=== PATIENT | female | born 1950 | race Caucasian/White ===

== ENCOUNTER → 2023-10-08 08:30 | Outpatient (REF) | payer MEDICARE, OTHER, SELFPAY | LOC: WDC 08:30 | PROVIDERS: ATTENDING PHYSICIAN Physician Assistant Medical | DX: Z12.31 Encounter for screening mammogram for malignant neoplasm of breast (principal) | CPT/HCPCS: 77063; 77067 ==

== ENCOUNTER → 2023-12-28 08:46 | Outpatient (REF) | payer MEDICARE, OTHER, SELFPAY | LOC: DHVS 08:46 | PROVIDERS: ATTENDING PHYSICIAN Surgery Vascular Surgery; FAMILY PHYSICIAN Physician Assistant Medical | DX: I73.9 Peripheral vascular disease, unspecified (principal) | CPT/HCPCS: 93922; 93925 ==

== ENCOUNTER → 2024-01-10 06:16 | Day surgery (SDC) | payer MEDICARE, OTHER, SELFPAY ==
[2024-01-10 08:38] LABS: Glucose - Point of Care 160 mg/dl (70-99)
== END ==
LOC: GI 06:16
PROVIDERS: ATTENDING PHYSICIAN Internal Medicine Gastroenterology
DX: K57.30 Diverticulosis of large intestine without perforation or abscess without bleeding (principal); R19.5 Other fecal abnormalities
CPT/HCPCS: 45378; 82962; 93005

== ENCOUNTER → 2024-03-19 11:06 | Outpatient (REF) | payer MEDICARE, OTHER, SELFPAY | LOC: DHSLP 11:06 | PROVIDERS: ATTENDING PHYSICIAN Internal Medicine; FAMILY PHYSICIAN Physician Assistant Medical | DX: G47.19 Other hypersomnia (principal); R06.83 Snoring | CPT/HCPCS: 95800 ==

== ENCOUNTER → 2024-04-23 15:05 | Outpatient (REF) | payer MEDICARE, OTHER, SELFPAY | LOC: DHSLP 15:05 | PROVIDERS: ATTENDING PHYSICIAN Internal Medicine; FAMILY PHYSICIAN Physician Assistant Medical | DX: G47.33 Obstructive sleep apnea (adult) (pediatric) (principal) | CPT/HCPCS: 95810 ==

== ENCOUNTER 2024-04-24 14:06 | Inpatient (IN) | payer MEDICARE, OTHER, SELFPAY ==
[2024-04-24] VITALS (8 sets, daily range): BP systolic 124–189; BP diastolic 50–100; BMI 24.8; BMI 24.1
--- NOTE | 2024-04-24 10:43 | ED.GENMED ---
History of Present Illness
General
Chief Complaint: Abnormal Lab Value
Source: patient
Exam Limitations: none
Time Seen by Provider: 04/24/24 10:33
Nursing documentation reviewed up to this point in time: agreed with
History of Present Illness
History of Present Illness:
Patient is a 73-year-old female with past medical history of hypertension diabetes high cholesterol presents to the ER for evaluation. Patient was sent to the ER today by her family doctor because of abnormal low platelets and recent blood work.
Patient reports for the past 3 weeks she has had blood blisters/sores in her mouth. She also has had bruising throughout her body and red rash to her legs and arms and saw her family doctor who ordered blood work. She has felt shaky and a little
tired recently. She is not on blood thinners.
She denies any nosebleeds. Denies any black or dark stools. Denies any vomiting blood.
Patient does report 2 weeks prior to the blood blister starting she was started on prednisone and Zanaflex for left shoulder pain.
Review of Systems
Review of Systems
Allergies reviewed?: Yes
All Other Systems: ROS reviewed and negative except as documented in HPI and ROS
Constitutional: Reports fatigue
EENT: Reports other (Blood blisters to mouth)
Respiratory: Reports no symptoms
Cardiac: Reports no symptoms
ABD/GI: Denies abdominal pain, nausea, vomiting, diarrhea or black stools
: Reports no symptoms; Denies bleeding
Musculoskeletal: Reports no symptoms
Skin: Reports no symptoms
Neurological: Reports no symptoms
Hematologic/Lymphatic: Reports bruising and other (Blood blisters in mouth)
Phy Exam
General Physical Exam
General Presentation: no apparent distress
General age: appears stated age
General Skin: warm and dry
General Habitus: normal
General Mental: alert
General Hydration: appears well hydrated
ENT Exam
ENT Exam: other (Blood blisters in mouth)
Eye Exam
Eye Exam General: PERRL: bilateral and EOM intact: bilateral
Pupil Exam: Bilateral: round and reactive
Cardiovascular Exam
Cardiovascular Exam: regular rate/rhythm, no murmur and normal peripheral pulses
Pulmonary Exam
Pulmonary Exam: lungs clear and no respiratory distress
Neurological Exam
Neurological Exam: alert and oriented x3
Musculoskeletal Exam
Musculoskeletal Exam: other (Scattered ecchymosis to extremities scattered red macular vasculitic rash to legs/arms )
Skin Exam
Skin Exam: normal color and warm/dry
Psychiatric Exam
Psychiatric Exam: normal mood/affect
Course
Orders/Labs/Results
Orders:
Orders
04/24/24 10:45
Type+Screen Urgent
Complete Blood Count/With Diff Urgent
Comprehensive Metabolic Panel Urgent
04/24/24 12:08
Electrocardiogram (*1) Stat
Reason for Study: Abdominal Pain
EKG- Treatment ONCE
Abnormal Lab Results
04/24/24
10:45
RBC 3.73 L 10^6/uL
(4.20-5.40)
MCV 100.0 H fL
(81.0-99.0)
MCH 33.2 H pg
(27.0-31.0)
Plt Count 2 L* 10^3/uL
(130-400)
Absolute Monos (auto) 0.7 H 10^3/uL
(0.1-0.6)
Chloride 109 H mmol/L
(98-107)
BUN 42 H mg/dl
(7-17)
Creatinine 1.4 H mg/dL
(0.6-1.0)
Glucose 176 H mg/dl
(70-99)
04/24/24 10:45
04/24/24 10:45
Vital Signs
Initial and Last Documented VS:
Initial Vital Signs
Temp Pulse Resp BP Pulse Ox
98.6 F 72 20 124/100 100
04/24/24 09:47 04/24/24 09:47 04/24/24 09:47 04/24/24 09:47 04/24/24 09:47
Last Documented Vital Signs
Temp Pulse Resp BP Pulse Ox
98.6 F 70 22 138/78 97
04/24/24 09:47 04/24/24 12:00 04/24/24 12:00 04/24/24 12:00 04/24/24 12:00
Radio Interference Expert consulted with Physician
Radio Interference Expert consulted with physician?: Yes
Name of Physician Consulted: Howie
MDM/Problems Addressed
Differential Diagnosis Includes:
Not limited to thrombocytopenia
MDM/Problems Addressed:
Patient is a 73-year-old female who was sent for low platelets. Patient started with blood blisters in her mouth several weeks ago no other complaints of bleeding including no nosebleeds no black stools no hematuria. She presents today awake alert
no acute distress sent by family doctor. She was recently started on prednisone and Zanaflex 2 weeks before the blood blister started in her mouth. Otherwise no other new medicines she is on multiple medicines for hypertension hyperlipidemia
diabetes.
On exam she does have scattered ecchymosis to extremities he does have a rash consistent vasculitis.
Patient denies any recent illnesses afebrile with a hemoglobin of 12.4 a white count of 8.0 platelets are low at 2. Patient's BUN is elevated at 42 creatinine 1.4 slightly (increased from previous labs of 2019).
Patient is in no acute distress well-appearing. Case discussed admitting hospitalist and oncology hematology Dr. Galvan who will look at smear first and then possibly order single donor platelets.
Patient into the hospital service not
*Pulse Oximetry
Patient hypoxic: no
*Critical Care Note
Total Time (30-74mins, 75-104mins- exclusive of procedures): Not Applicable
Patient Management
Discussion with other providers: Onion Farmer (hematology DR Galvan )
ED Attending Note
-
Portions of this chart may have been created with voice recognition software.� Occasional wrong word or��sound alike� substitutions may have occurred due to the inherent limitations of voice recognition software.
Discharge Plan
Departure
Patient Disposition: Admit
Date of Disposition: 04/24/24
Time of Disposition: 12:08
Admit to: Med/Surg
Admit to doctor: hospitalist
Presentation/result/management discussed w/ accepting MD/DO: Hospitalist
Patient with high blood pressure during this ER visit?: Yes
Condition: Fair
Covid-19: Not Applicable
Discharge Problem:
Thrombocytopenia
Prescriptions:
No Action
lovastatin 40 MG tablet
40 mg PO DAILY
glimepiride 4 MG tablet
4 mg PO BID
aspirin 81 MG tablet,chewable
1 tab PO DAILY
Patient Comments:
hold for surgery on 04/25/24
losartan 100 MG tablet
100 mg PO DAILY
multivitamin 1 EACH tablet
1 ea PO DAILY
ascorbic acid (vitamin C) [Vitamin C] 1,000 mg Tablet
1,000 mg PO DAILY Qty: 0
cholecalciferol (vitamin D3) [Vitamin D3] 50 mcg (2,000 unit) Tablet
50 mcg PO DAILY
metformin 1,000 MG tablet
1,000 mg PO BID
Jardiance 25 mg Tablet
25 mg PO DAILY
levothyroxine [Synthroid] 175 mcg Tablet
175 mcg PO MOTUWETHFRSA@0600
Interventions
Interventions:
*General Assessment Last Done: 04/24/24 09:47
*Neglect/Abuse Screening Last Done: 04/24/24 09:47
ED- Fall Risk Assessment Last Done: 04/24/24 11:05
*ED COVID-19 Vaccine History Last Done: 04/24/24 11:05
Discharge Date and Time
Print Language: SPANISH
[2024-04-24 11:09] LABS: ALT (SGPT) 15 U/L (0-35); AST (SGOT) 19 U/L (14-36); Albumin 3.7 g/dl (3.5-5.0); Alkaline Phosphatase 61 U/L (38-126); Blood Urea Nitrogen 42 mg/dl (7-17); Calcium 8.7 mg/dl (8.4-10.2); Carbon Dioxide 22 mmol/L (22-30); Chloride 109 mmol/L (98-107); Estimated Creatinine Clearance 38 ml/min; Glucose 176 mg/dl (70-99); Sodium 138 mmol/L (135-145); Total Bilirubin 0.4 mg/dl (0.2-1.3); Total Protein 6.3 g/dl (6.3-8.2); eGFR 39.97
[2024-04-24 11:37] LABS: % Basophils 0.6 % (0-2); % Eosinophils 0.9 % (0-6); % Immature Granulocytes 0.5 % (0-0.5); % Lymphocytes 21.9 % (20.5-51.1); % Monocytes 8.8 % (1.7-9.3); % Neutrophils 67.3 % (42.2-75.2); Absolute Basophils 0.1 10^3/uL (0-0.2); Absolute Eosinophils 0.1 10^3/uL (0-0.7); Absolute Lymphocytes 1.8 10^3/uL (1.2-3.4); Absolute Monocytes 0.7 10^3/uL (0.1-0.6); Absolute Neutrophils 5.4 10^3/uL (1.4-6.5); Hematocrit 37.3 % (37.0-47.0); Hemoglobin 12.4 g/dL (12.0-16.0); Mean Corp Hgb Conc. 33.2 g/dL (33.0-37.0); Mean Corpuscular Hgb 33.2 pg (27.0-31.0); Nucleated Red Blood Cells % 0 %; Platelet Count 2 10^3/uL (130-400); Red Blood Cell Count 3.73 10^6/uL (4.20-5.40); Red Cell Dist. Width 13.1 % (11.5-14.5)
--- NOTE | 2024-04-24 12:36 | ED.GENMED ---
History of Present Illness
General
Chief Complaint: Abnormal Lab Value
Source: patient
Exam Limitations: none
Time Seen by Provider: 04/24/24 10:33
Nursing documentation reviewed up to this point in time: agreed with
History of Present Illness
History of Present Illness:
Patient sent in for low platelet count with petechial rash and increased bruising.
Past History
Past History
ED Past Medical History: Other
ED Past Surgical History: Other
Social History
Alcohol: None
Drug: None
Personal:
Living: with family
Family History
Family History: Other
Review of Systems
Review of Systems
Allergies reviewed?: Yes
All Other Systems: Not applicable
Phy Exam
Physical Exam
Physical Exam:
Patient appears well, nontoxic, heart sounds regular lungs are clear. Petechial rash on extremities, chest and abdomen. Patient has extensive ecchymoses of lower extremities, especially left proximal thigh
Course
Orders/Labs/Results
Orders:
Orders
04/24/24 10:45
Type+Screen Urgent
Complete Blood Count/With Diff Urgent
Comprehensive Metabolic Panel Urgent
04/24/24 12:08
Electrocardiogram (*1) Stat
Reason for Study: Abdominal Pain
EKG- Treatment ONCE
Abnormal Lab Results
04/24/24
10:45
RBC 3.73 L 10^6/uL
(4.20-5.40)
MCV 100.0 H fL
(81.0-99.0)
MCH 33.2 H pg
(27.0-31.0)
Plt Count 2 L* 10^3/uL
(130-400)
Absolute Monos (auto) 0.7 H 10^3/uL
(0.1-0.6)
Chloride 109 H mmol/L
(98-107)
BUN 42 H mg/dl
(7-17)
Creatinine 1.4 H mg/dL
(0.6-1.0)
Glucose 176 H mg/dl
(70-99)
04/24/24 10:45
04/24/24 10:45
Vital Signs
Initial and Last Documented VS:
Initial Vital Signs
Temp Pulse Resp BP Pulse Ox
98.6 F 72 20 124/100 100
04/24/24 09:47 04/24/24 09:47 04/24/24 09:47 04/24/24 09:47 04/24/24 09:47
Last Documented Vital Signs
Temp Pulse Resp BP Pulse Ox
98.6 F 70 22 138/78 97
04/24/24 09:47 04/24/24 12:00 04/24/24 12:00 04/24/24 12:00 04/24/24 12:00
*Critical Care Note
Total Time (30-74mins, 75-104mins- exclusive of procedures): Not Applicable
Patient Management
Social determinants of health affecting care: Living situation and Strong social support
ED Attending Note
-
Portions of this chart may have been created with voice recognition software.� Occasional wrong word or��sound alike� substitutions may have occurred due to the inherent limitations of voice recognition software.
Discharge Plan
Departure
Patient Disposition: Admit
Date of Disposition: 04/24/24
Time of Disposition: 12:08
Admit to: Med/Surg
Admit to doctor: hospitalist
Presentation/result/management discussed w/ accepting MD/DO: Hospitalist
Patient with high blood pressure during this ER visit?: Yes
Condition: Fair
Covid-19: Not Applicable
Discharge Problem:
Thrombocytopenia
Prescriptions:
No Action
lovastatin 40 MG tablet
40 mg PO DAILY
glimepiride 4 MG tablet
4 mg PO BID
aspirin 81 MG tablet,chewable
1 tab PO DAILY
Patient Comments:
hold for surgery on 04/25/24
losartan 100 MG tablet
100 mg PO DAILY
multivitamin 1 EACH tablet
1 ea PO DAILY
ascorbic acid (vitamin C) [Vitamin C] 1,000 mg Tablet
1,000 mg PO DAILY Qty: 0
cholecalciferol (vitamin D3) [Vitamin D3] 50 mcg (2,000 unit) Tablet
50 mcg PO DAILY
metformin 1,000 MG tablet
1,000 mg PO BID
Jardiance 25 mg Tablet
25 mg PO DAILY
levothyroxine [Synthroid] 175 mcg Tablet
175 mcg PO MOTUWETHFRSA@0600
Interventions
Interventions:
*General Assessment Last Done: 04/24/24 09:47
*Neglect/Abuse Screening Last Done: 04/24/24 09:47
ED- Fall Risk Assessment Last Done: 04/24/24 11:05
*ED COVID-19 Vaccine History Last Done: 04/24/24 11:05
Discharge Date and Time
Print Language: PORTUGUESE
--- NOTE | 2024-04-24 13:02 | HPS.HSE ---
Addendum entered and electronically signed by Andria Ledbetter MD 04/24/24 14:33:
will resume low dose Glimepiride for now
Addendum entered and electronically signed by Andria Ledbetter MD 04/24/24 14:32:
per Dr. Galvan, Jardiance can have some anti-PLT effect so will hold for now
Addendum entered and electronically signed by Andria Ledbetter MD 04/24/24 13:43:
Hypothyroidism
-[employer] Synthroid
Original Note:
Family Physician
-
Family Physician: Marlys Patel
Chief Complaint
-
abnormal outpatient labs, low platelets
History of Present Illness
Ms. Bernarda Aquino is a 73 yo woman with hx NIDDM, essential HTN, CKD with outpatient work up for blood blisters in mouth with outpatient labs showing PLT count of 2 sent to the ER.
Patient states she first noticed bruising several weeks ago. She had blood blisters in her mouth that were the most bothersome, directed to get outpatient blood work and sent here with finding of low platelets. She has not had any black or bloody
stools. She stopped taking aspirin 2 weeks ago for upcoming eye procedure.
No fevers/chills. No chest pain or shortness of breath. No nausea/vomiting/diarrhea. No LE swelling.
Medical History
Past Medical History
Past Medical History: Reports Other ( NIDDM, essential HTN, CKD)
Past Surgical History: Reports Other
Social History
Tobacco: Smoker (1/2 pack/day)
Alcohol: None
Family History
Family History: Not pertinent
Allergies / Home Medications
Allergies reflects when Allergies were last updated in [facility].
Home Medications with original date entered in [facility]
Allergy/Medication List:
Allergies
Allergy/AdvReac Type Severity Reaction Status Date / Time
sulfanilamide Allergy Unknown Unknown Verified 08/13/19 07:23
lisinopril Allergy Unknown Verified 08/13/19 07:23
Home Medications
aspirin 81 mg chewable tablet 1 tab PO DAILY 04/07/19
glimepiride 4 mg tablet 4 mg PO BID 04/07/19
losartan 100 mg tablet 100 mg PO DAILY 04/07/19
lovastatin 40 mg tablet 40 mg PO DAILY 04/07/19
ascorbic acid (vitamin C) 1,000 mg tablet (Vitamin C) 1,000 mg PO DAILY ##0 08/13/19
multivitamin 1 ea PO DAILY 08/13/19
cholecalciferol (vitamin D3) 50 mcg (2,000 unit) tablet (Vitamin D3) 50 mcg PO DAILY 04/24/24
empagliflozin 25 mg tablet (Jardiance) 25 mg PO DAILY 04/24/24
levothyroxine 175 mcg tablet (Synthroid) 175 mcg PO MOTUWETHFRSA@0600 04/24/24
metformin 1,000 mg tablet 1,000 mg PO BID 04/24/24
Review of Systems
-
History Source: Patient
A 12 point ROS was completed and negative except as noted: Yes
Physical Exam
Vital Signs
Vital Signs
Temp Pulse Resp BP Pulse Ox
98.6 F 70 22 138/78 97
04/24/24 09:47 04/24/24 12:00 04/24/24 12:00 04/24/24 12:00 04/24/24 12:00
Physical Exam
General: No Apparent Distress and Conversant
HEENT: PERRLA
Respiratory: Clear; No Wheezes
Cardiac: S1/S2 and Regular Rhythm
GI: Soft and Non Tender
Musculoskeletal: No Edema
Skin: Other (scattered bruising and petechiae )
Neuro: AO x 3
Psych: Calm
Laboratory Results
-
04/24/24 10:45
04/24/24 10:45
Laboratory Results
Total Bilirubin 0.4 mg/dl (0.2-1.3) 04/24/24 10:45
AST 19 U/L (14-36) 04/24/24 10:45
ALT 15 U/L (0-35) 04/24/24 10:45
Alkaline Phosphatase 61 U/L (38-126) 04/24/24 10:45
Data Reviewed
-
Diagnostic Radiology: Report Reviewed by me
Lab Data: Labs Reviewed by me
Impression/Plan
-
Ms. Bernarda Aquino is a 73 yo woman with hx NIDDM, essential HTN, CKD with outpatient work up for blood blisters in mouth with outpatient labs showing PLT count of 2 sent to the ER.
Triage VS: T 98.6, P 72, RR 20, BP 124/100, SpO2 100%
LABS: WBC 8, Hg 12.4, PLT 2, Na 138, K+ 5, Cl 109, BUN 42, Cr 1.4, Glucose 176, liver enzymes WNL
Thrombocytopenia
Suspected ITP
-seen by Hematology in the ER
-transfuse 1 unit PLT (ordered, blood bank may not have PLT transfusion until this evening)
-Pulse Decadron 40mg IV QD
-hold [employer] aspirin (had been held for upcoming procedure)
NIDDM
-patient is on Jardiance, Glimepiride and Metformin at home
-continue Jardiance for now, add on other oral agents based on BGL
-ISS low
-diabetic diet
Essential HTN
-[employer] Losartan
Elevated creatinine, patient states she's been told she has chronic kidney disease
-requesting outpatient records
HLD [employer] Statin
DVT PPx - contraindicated
FULL CODE
76 minutes spent on patient care
--- NOTE | 2024-04-24 14:13 | CON.ONC ---
Impression
Impression
thrombocytopenia
petechial rash
ecchymosis
Plan
Plan
1. Thrombocytopenia - The etiology of this patient's thrombocytopenia is unclear. ITP is on the differential, given normal WBC and hemoglobin. Tizanidine, which the patient was taking a few weeks ago, has thrombocytopenia listed in the PI as a rare
side effect. Jardiance can have some anti-platelet effects; therefore, would hold in the setting of severe thrombocytopenia.
Reviewed patient's peripheral blood smear w/ no evidence of microangiopathic RBCs changes appreciated. Red blood cell morphology appeared fairly normal. Will proceed w/ initiation of steroids - w/ pulse dexamethasone 40mg daily and transfuse 1 unit
single donor plts. Check anti-platelet antibody panel as well as hepatitis panel.
Will continue to follow with you.
Patient History
History of Present Illness
73y/o female seen in consultation today regarding thrombocytopenia.
The patient has noted petechial rash on her LE bilaterally for about a week or two, along w/ some new sores/ blisters in mouth and ecchymosis along her left inner thigh. She presented to her PCP, who did some labs, which demonstrated low platelets.
CBC in ER reveals normal total WBC of 8000, hemoglobin 12.4g/dl, and platelet count 2000. Differential of total WBC revealed normal differential percentages.
She denies any prior history of thrombocytopenia. She does note a recent history of shoulder pain treated w/ prednisone and Zanaflex.
Clinically, she notes no fevers or chills. No SOB, chest pain, palpitations, abdominal pain/ fullness. No self-palpated adenopathy. She denies blood in her stool or urine. Bruising and petechial rash as reported above. No epistaxis. She has had some
oral mucocutaneous discomfort and sores.
Past-Medical/Surgical History
PMH:
DM
HTN
CKD
hyperlipidemia
hypothyroidism
tobacco use
PSH:
tendon sheath
wisdom teeth
hemorrhoid surgery
SH:
smoker
no significant ETOH
FH: mother cancer - denies a family history of thrombocytopenia
Allergies: lisinopril, sulfa
Patient Medication
�Medication �Instructions �Recorded �Confirmed �Last Taken �Type
aspirin 81 mg chewable tablet 1 tab PO DAILY 04/07/19 04/24/24 30 Days Ago History
~03/25/24
glimepiride 4 mg tablet 4 mg PO BID 04/07/19 04/24/24 04/24/24 History
losartan 100 mg tablet 100 mg PO DAILY 04/07/19 04/24/24 04/24/24 History
lovastatin 40 mg tablet 40 mg PO DAILY 04/07/19 04/24/24 04/24/24 History
ascorbic acid (vitamin C) 1,000 mg 1,000 mg PO DAILY ##0 08/13/19 04/24/24 08/12/19 08:00 History
tablet (Vitamin C)
multivitamin 1 ea PO DAILY 08/13/19 04/24/24 08/12/19 08:00 History
cholecalciferol (vitamin D3) 50 50 mcg PO DAILY 04/24/24 04/24/24 Unknown History
mcg (2,000 unit) tablet (Vitamin
D3)
empagliflozin 25 mg tablet 25 mg PO DAILY 04/24/24 04/24/24 04/24/24 History
(Jardiance)
levothyroxine 175 mcg tablet 175 mcg PO MOTUWETHFRSA@0600 04/24/24 04/24/24 04/23/24 History
(Synthroid)
metformin 1,000 mg tablet 1,000 mg PO BID 04/24/24 04/24/24 04/24/24 History
Active Medications
Generic Name Dose Route Start Last Admin
Trade Name Freq PRN Reason Stop Dose Admin
Dexamethasone Sodium Phosphate 60 mls @ 180 mls/hr 04/24/24 13:37
40 mg/ Sodium Chloride IV 04/24/24 13:56
ONCE ONE
Review of Systems
-
A ROS was performed w/ pertinent findings as per HPI.
Physical Exam
-
General: Well Developed and No Apparent Distress
HEENT: Negative Jaundice
Cardiology: Normal Sinus Rhythm
Pulmonary: Clear
GI: Soft and Normal Bowel Sounds; Negative Distended
Extremities: Negative Edema
Neurology: Non Focal
Skin: Other (petechial rash bilateral LE to knee, ecchymosis left inner thigh)
Hematologic / Lymphatic: Negative Lymphadenopathy
Labs
Lab Results
WBC 8.0 10^3/uL (4.8-10.8) 04/24/24 10:45
RBC 3.73 10^6/uL (4.20-5.40) L 04/24/24 10:45
Hgb 12.4 g/dL (12.0-16.0) 04/24/24 10:45
Hct 37.3 % (37.0-47.0) 04/24/24 10:45
MCV 100.0 fL (81.0-99.0) H 04/24/24 10:45
MCH 33.2 pg (27.0-31.0) H 04/24/24 10:45
MCHC 33.2 g/dL (33.0-37.0) 04/24/24 10:45
RDW 13.1 % (11.5-14.5) 04/24/24 10:45
Plt Count 2 10^3/uL (130-400) L* 04/24/24 10:45
MPV Not Reportable 04/24/24 10:45
Abs Immat Gran (auto) 0.0 10^3/uL (0-0.05) 04/24/24 10:45
Absolute Neuts (auto) 5.4 10^3/uL (1.4-6.5) 04/24/24 10:45
Absolute Lymphs (auto) 1.8 10^3/uL (1.2-3.4) 04/24/24 10:45
Absolute Monos (auto) 0.7 10^3/uL (0.1-0.6) H 04/24/24 10:45
Absolute Eos (auto) 0.1 10^3/uL (0-0.7) 04/24/24 10:45
Absolute Basos (auto) 0.1 10^3/uL (0-0.2) 04/24/24 10:45
Immature Gran % 0.5 % (0-0.5) 04/24/24 10:45
Neutrophils % 67.3 % (42.2-75.2) 04/24/24 10:45
Lymphocytes % 21.9 % (20.5-51.1) 04/24/24 10:45
Monocytes % 8.8 % (1.7-9.3) 04/24/24 10:45
Eosinophils % 0.9 % (0-6) 04/24/24 10:45
Basophils % 0.6 % (0-2) 04/24/24 10:45
Creatinine 1.4 mg/dL (0.6-1.0) H 04/24/24 10:45
Vital Signs
Vital Signs
Temp Pulse Resp BP Pulse Ox
98.6 F 70 22 138/78 97
04/24/24 09:47 04/24/24 12:00 04/24/24 12:00 04/24/24 12:00 04/24/24 12:00
--- NOTE | 2024-04-24 15:03 | ED.GENMED ---
History of Present Illness
General
Chief Complaint: Abnormal Lab Value
Time Seen by Provider: 04/24/24 10:33
Past History
Past History
ED Past Medical History: Other
ED Past Surgical History: Other
Social History
Alcohol: None
Drug: None
Personal:
Living: with family
Family History
Family History: Other
Course
Orders/Labs/Results
Orders:
Orders
04/24/24 10:45
Type+Screen Urgent
Complete Blood Count/With Diff Urgent
Comprehensive Metabolic Panel Urgent
04/24/24 12:08
Electrocardiogram (*1) Stat
Reason for Study: Abdominal Pain
EKG- Treatment ONCE
04/24/24 13:23
Admit/Transfer Patient As Directed
Co-Sign Provider:
Level of Care: Inpatient admission
Assign to:: Telemetry
Physician / Group: Andria Ledbetter
Diagnosis: thrombocytopenia
Reason for Telemetry: Chest Pain syndromes
Date to Stop Telemetry: 04/26/24
Time to Stop Telemetry: 11:00
Reason for Hospitalization: severe thrombocytopenia
Expected length of stay greater than two midnights?: Yes
ELOS- Estimated Length of Stay in days: 3
I certify the patient meets the requirements for IP care: Yes
PRN Pain Medication Management As Directed
May give lesser potent ordered pain med per pt: Yes
preference::
Protocol:: Medication orders for pain may be administered in a
manner that supports deferring to patient preference
when the pt is:
- Requesting an ordered lesser potent pain medication.
Least to most potent pain medications are defined
as: acetaminophen < NSAID < tramadol < opioids
(morphine, oxycodone, hydromorphone).
- Requesting a lesser dose of the same medication IF
ORDERED.
- Requesting a less intrusive route of administration
if both routes are prescribed by the provider (PO <
IV).
04/24/24 13:24
Code Status As Directed
Resuscitation Status: Full Code
04/24/24 13:27
Blood Bank Products [* Blood Bank Products] Urgent
Blood Bank Products: *Plt Single Donor Leuko
Quantity: 1
Transfuse Today: Yes
Reason: Thrombocytopenia
04/24/24 14:27
Dexamethasone Sod Phosphate [Decadron] 40 mg 0.9% Sodium Chloride 50 ml [Nss] 50 ml IV NOW
04/26/24 11:00
DC Protocol for Telemetry ONCE
Abnormal Lab Results
04/24/24
10:45
RBC 3.73 L 10^6/uL
(4.20-5.40)
MCV 100.0 H fL
(81.0-99.0)
MCH 33.2 H pg
(27.0-31.0)
Plt Count 2 L* 10^3/uL
(130-400)
Absolute Monos (auto) 0.7 H 10^3/uL
(0.1-0.6)
Chloride 109 H mmol/L
(98-107)
BUN 42 H mg/dl
(7-17)
Creatinine 1.4 H mg/dL
(0.6-1.0)
Glucose 176 H mg/dl
(70-99)
04/24/24 10:45
04/24/24 10:45
Vital Signs
Initial and Last Documented VS:
Initial Vital Signs
Temp Pulse Resp BP Pulse Ox
98.6 F 72 20 124/100 100
04/24/24 09:47 04/24/24 09:47 04/24/24 09:47 04/24/24 09:47 04/24/24 09:47
Last Documented Vital Signs
Temp Pulse Resp BP Pulse Ox
98.6 F 68 21 126/70 99
04/24/24 09:47 04/24/24 14:30 04/24/24 14:30 04/24/24 13:00 04/24/24 12:15
MDM/Problems Addressed
MDM/Problems Addressed:
73-year-old female presents to the ER for evaluation of low platelets. Patient started with blood blister several weeks ago an had outpatient and was sent to the ER for evaluation of low platelets. She has no history of abnormal platelets. On
exam she is nontoxic awake alert able to give good history. She does have blisters in her mouth with scattered ecchymosis petechiae. She denies any other areas of bleeding denies any nosebleeds rectal bleeding. She denies any chest pain shortness
of breath and vital signs are stable her white count is normal her hemoglobin is also normal at 12.4, her platelets are low at 2000 her BUN and creatinine are minimally elevated.
Case discussed with hematology Dr. Galvan who evaluated pt.
Pt was eval by hospitliast consent obtained by hospitalist for tx of platlets. NO pls in hospital at this time as per lab Possibly eval this evening. Hematology aware.
*Pulse Oximetry
Patient hypoxic: no
*EKG
Interpreted by ED Provider?: Yes
Heart Rate: 66
Rate: normal
ED Attending Note
-
Portions of this chart may have been created with voice recognition software.� Occasional wrong word or��sound alike� substitutions may have occurred due to the inherent limitations of voice recognition software.
Discharge Plan
Departure
Patient Disposition: Admit
Date of Disposition: 04/24/24
Time of Disposition: 12:08
Admit to: Med/Surg
Admit to doctor: hospitalist
Presentation/result/management discussed w/ accepting MD/DO: Hospitalist
Patient with high blood pressure during this ER visit?: Yes
Condition: Fair
Covid-19: Not Applicable
Discharge Problem:
Thrombocytopenia
Interventions
Interventions:
*General Assessment Last Done: 04/24/24 09:47
*Neglect/Abuse Screening Last Done: 04/24/24 09:47
ED- Fall Risk Assessment Last Done: 04/24/24 11:05
*ED COVID-19 Vaccine History Last Done: 04/24/24 11:05
[2024-04-24] MEDS: DECADRON 60 MG IV (15:07)
[2024-04-24] MEDS: NICODERM TRANSDERMAL 14 MG TRANSDERM (16:42)
[2024-04-24 19:28] LABS: Glucose - Point of Care 349 mg/dl (70-99)
[2024-04-24] MEDS: NOVOLOG FLEXPEN 5 UNITS SC (20:43)
[2024-04-25] VITALS (10 sets, daily range): BP systolic 105–166; BP diastolic 63–88; BMI 23.7
[2024-04-25 01:53] LABS: Glucose - Point of Care 278 mg/dl (70-99)
[2024-04-25 02:58] LABS: Glucose - Point of Care 224 mg/dl (70-99)
[2024-04-25] MEDS: SYNTHROID 175 MCG PO (04:59)
[2024-04-25 06:38] LABS: INR 0.96; PT 13.2 Sec (11.4-14.6)
[2024-04-25 06:54] LABS: Blood Urea Nitrogen 38 mg/dl (7-17); Calcium 9.1 mg/dl (8.4-10.2); Carbon Dioxide 18 mmol/L (22-30); Chloride 109 mmol/L (98-107); Estimated Creatinine Clearance 44 ml/min; Glucose 164 mg/dl (70-99); Magnesium 2.2 mg/dl (1.6-2.3); Potassium 4.7 mmol/L (3.5-5.1); Sodium 138 mmol/L (135-145); eGFR 48.09
[2024-04-25 07:34] LABS: % Basophils 0.1 % (0-2); % Immature Granulocytes 0.4 % (0-0.5); % Lymphocytes 9.8 % (20.5-51.1); % Monocytes 10.9 % (1.7-9.3); % Neutrophils 78.8 % (42.2-75.2); Absolute Lymphocytes 0.8 10^3/uL (1.2-3.4); Absolute Monocytes 0.9 10^3/uL (0.1-0.6); Absolute Neutrophils 6.6 10^3/uL (1.4-6.5); Hematocrit 36.5 % (37.0-47.0); Hemoglobin 12.3 g/dL (12.0-16.0); Mean Corp Hgb Conc. 33.7 g/dL (33.0-37.0); Mean Corpuscular Hgb 32.4 pg (27.0-31.0); Mean Corpuscular Volume 96.1 fL (81.0-99.0); Nucleated Red Blood Cells % 0 %; Red Cell Dist. Width 12.9 % (11.5-14.5); White Blood Cell Count 8.4 10^3/uL (4.8-10.8)
[2024-04-25 07:35] LABS: Platelet Count 2 10^3/uL (130-400)
[2024-04-25 07:53] LABS: Hepatitis C Antibody Negative (Negative)
[2024-04-25 08:39] LABS: Glucose - Point of Care 120 mg/dl (70-99)
[2024-04-25] MEDS: LIPITOR 10 MG PO (08:50)
[2024-04-25] MEDS: GLUCOPHAGE 1000 MG PO ×2 (08:51→17:48)
[2024-04-25] MEDS: NICODERM TRANSDERMAL 14 MG TRANSDERM (08:51)
[2024-04-25] MEDS: COZAAR 100 MG PO (08:52)
--- NOTE | 2024-04-25 11:05 | CM ---
Pt seen bedside w/ ex-. Initial assessment completed. Admitted for abnormal outpatient labs, low platelets.
Pt reports that she lives w/ her ex- in a single story home- 1 step to enter the home. Pt reports she is independent w/ ambulating and ADLs, there are grab bars in the home, no other DME identified.
Denies SNF/VN/PT hx. Pt denies any current OP or home services at this time.
Address, point of contact and insurance verified
PCP: Dr. Marlys Patel
Pharmacy: [facility]. [facility] also [facility]
Plan: CM will cont to follow hospital course
[2024-04-25 12:04] LABS: Glucose - Point of Care 140 mg/dl (70-99)
[2024-04-25] MEDS: GAMMAGARD 50 IV (12:06)
[2024-04-25] MEDS: NOVOLOG FLEXPEN-LOW RESISTANCE SC (12:25)
[2024-04-25 12:45] LABS: Glycohemoglobin (HgbA1c) 6.8 % (4.0-5.6)
[2024-04-25] MEDS: DECADRON 60 MG IV (13:07)
[2024-04-25] MEDS: GAMMAGARD 200 IV ×3 (13:08→15:21)
--- NOTE | 2024-04-25 14:11 | W.PN.ONC2 ---
Today's Communication / Plan
-
- IVIG x 2 days starting today.
- continue dexamethasone.
- CBC daily.
Impression
Impression
thrombocytopenia
petechial rash
ecchymosis
Plan
Plan
1. Thrombocytopenia - The etiology of this patient's thrombocytopenia is unclear. ITP is high on the differential, given normal WBC and hemoglobin. Tizanidine, which the patient was taking a few weeks ago, has thrombocytopenia listed in the PI as a
rare side effect. Jardiance can have some anti-platelet effects; therefore, would hold in the setting of severe thrombocytopenia.
- nml hgb, coags, T bili. no schistocytes on smear review by Dr Galvan.
- pulse dexamethasone 40mg daily x 4 started 04/24. Continue
- anti-platelet antibody panel as well as hepatitis panel ordered.
- received 1 unit plts 04/24 with no response. plts remain 2K today. Can hold off as limited response until other tx takes effect.
- ordered IVIG 1 mg/kg x 2 days for suspected ITP.
- CBC daily. transfuse if < 10K with new bleeding symptoms.
Will continue to follow with you and arrange hematology follow up with close lab monitoring on discharge.
Subjective/Objective
Chief Complaint
severe thrombocytopenia
Subjective
pt has no new complaints today. Temp of 101 recorded today however pt states she thinks error. Denies chills, malaise or other infectious symptoms. Denies new bruising or bleeding. Plts remain at 2,000 today despite 1 unit plts yesterday evening.
Vital Signs:
Vital Signs
Temp Pulse Resp BP Pulse Ox
97.7 F 78 23 138/86 99
04/25/24 11:15 04/25/24 11:15 04/25/24 11:15 04/25/24 11:15 04/25/24 11:15
Lab Results:
Laboratory Data
WBC 8.4 10^3/uL (4.8-10.8) 04/25/24 06:01
Hgb 12.3 g/dL (12.0-16.0) 04/25/24 06:01
Plt Count 2 10^3/uL (130-400) L* 04/25/24 06:01
PT 13.2 Sec (11.4-14.6) 04/25/24 06:01
INR 0.96 04/25/24 06:01
eGFR 48.09 04/25/24 06:01
Physical Exam
HEENT: Other (ecchymotic lesion along inner mucosa of mouth on right side. ); No Jaundice
Cardiology: Normal Sinus Rhythm
Pulmonary: Clear
GI: Soft; No Distended
Extremities: Other (large ecchymotic lesion on left inner thigh ); No Phlebitic Signs or Edema
Neuro: Non Focal
Review of Systems
Review of Systems
Constitutional: Denies Fever
Head: Denies Sore Throat
Respiratory: Denies Dyspnea
Cardiovascular: Denies Chest Pain
Gastrointestinal: Denies Nausea/Vomiting
Genitourinary: Denies Hematuria
Neurological: Denies Headache
Hem/Lymphatic: Reports Easy Bruising
--- NOTE | 2024-04-25 14:42 | W.PN.HOSP.TC ---
Addendum entered and electronically signed by Precious Rai MD 04/25/24 15:39:
I saw and evaluated the patient independently. I reviewed the resident�s note and agree with findings and plan as documented by Dr. Hudson.
GENERAL: well developed, well nourished, pale appearing female in no apparent distress
HEENT: NC/AT--small area on inner right buccal mucosa with 'aphthous ulcer appearance'--not purpura
HEART: regular rate and rhythm, +S1, +S2
LUNGS : clear to auscultation bilaterally
ABDOM: soft, nontender, nondistended, + bowel sounds
EXT: no cyanosis, clubbing, or edema--ecchymosis on inner thigh--petechiae across lower legs
NEUROLOGIC: grossly intact
Thrombocytopenia--suspect ITP--from RSV vaccine?, meds, immune mediated?--unclear cause--apprec heme--received 1 pack platelets, hold further transfusion per heme--getting pulse dose steroids and IVIG--Jardiance and tizanidine on hold
Type 2 Cjr-qthbgrx-narzgohfl diabetes mellitus--Holding Jardiance/metformin-- cont glimepiride- SSI. Monitor accuchecks with current high dose steroids
Essential hypertension--Continue losartan
Elevated creatinine--unclear if KEANU vs CKD--creat 1.4 to 1.2--trend
Hyperlipidemia--Continue statin
DVT prophy--SCDs
CODE STATUS-- Full code
Original Note:
Today's Communication/Plan
-
Steroids, IVIG, follow CBC
Assessment / Plan
Assessment / Plan
71-year-old female with history of hypertension, diabetes and hypercholesterolemia who presents with thrombocytopenia.
Thrombocytopenia
Platelets 2 on arrival, same after 1unit of platelets
Possible ITP, with recent history of RSV vaccine
-Holding Jardiance for possible thrombocytopenia side effect
-Appreciate hematology recs - Pulse dexamethasone dosing, IVIG. Hold repeat platelet transfusion given no response to previous
-Follow CBC
Knz-mfprooa-huqkyzvxj diabetes mellitus:
-Holding Jardiance thrombocytopenia, holding metformin for kidney
-Will continue Glimepiride
- SSI. Monitor accuchecks with current high dose steroids
Essential hypertension:
-Continue losartan
Elevated creatinine
Patient reports history of CKD, unclear staging and baseline creatinine
-Monitor BMP, avoid nephrotoxic agents
Hyperlipidemia
-Continue statin
DVT prophylaxis: SCDs
CODE STATUS: Full code
Anticipated Discharge: > 48 hours
Subjective/Interval History
-
Date of Service: April 25, 2024
Pt feels well, no acute overnight events
Objective Data
-
Labs:
Laboratory Results
04/25/24
06:01
WBC 8.4
Hgb 12.3
Hct 36.5 L
Plt Count 2 L*
PT 13.2
INR 0.96
Sodium 138
Potassium 4.7
Chloride 109 H
Carbon Dioxide 18 L
BUN 38 H
Creatinine 1.2 H
Glucose 164 H
Calcium 9.1
Vital Signs:
Vital Signs
Temp Pulse Resp BP Pulse Ox
97.7 F 78 23 138/86 99
04/25/24 11:15 04/25/24 11:15 04/25/24 11:15 04/25/24 11:15 04/25/24 11:15
I&O
04/24/24 04/25/24 04/26/24
06:59 06:59 06:59
Intake Total 323 / 323
Balance 323 / 323
Review of Systems
-
History Source: Patient
Constitutional: Reports No Symptoms and Fatigue; Denies Fever
Respiratory: Denies Trouble Breathing
Cardiac: Denies Chest Pain or Palpitations
Skin: Reports Other (bruising, rash)
Neuro: Reports Lightheadedness (occasional)
Hematologic / Lymphatic: Denies Bleeding
Physical Exam
-
General: No Apparent Distress and Comfortable
HEENT: Normocephalic, Atraumatic and Other (some ecchymosis noted on inside cheeks)
Respiratory: Clear to Auscultation and Non Labored Respirations; Negative Wheezes, Rales, Rhonchi or Crackles
Cardiac: Regular Rhythm and S1/S2; Negative Murmur, Rub or Calf Tenderness
GI: Soft, Nontender, Nondistended and Normal Bowel Sounds
Skin: Warm, Dry and Other (several areas of ecchymosis on extremities, non-blanching petechial rash on lower extremies)
Neuro: Awake, Alert and Oriented
Psych: Calm
[2024-04-25 17:08] LABS: Glucose - Point of Care 326 mg/dl (70-99)
[2024-04-25] MEDS: NOVOLOG FLEXPEN-LOW RESISTANCE 4 UNITS SC (17:46)
[2024-04-25 21:28] LABS: Glucose - Point of Care 321 mg/dl (70-99)
[2024-04-25] MEDS: AMARYL 4 MG PO (21:35)
[2024-04-25] MEDS: NOVOLOG FLEXPEN 4 UNITS SC (21:51)
[2024-04-26] VITALS (13 sets, daily range): BP systolic 112–151; BP diastolic 48–73
[2024-04-26 01:43] LABS: Glucose - Point of Care 183 mg/dl (70-99)
--- NOTE | 2024-04-26 05:41 | PTCARENOTE ---
Patient's HS blood sugar was 321. JOESPH Briones made aware. Order for Novalog obtained. Novalog administered. Will continue to monitor.
[2024-04-26] MEDS: SYNTHROID 175 MCG PO (06:11)
--- NOTE | 2024-04-26 06:59 | W.PN.ONC2 ---
Today's Communication / Plan
-
Day # 2/2 IVIG. Day # 3/4 Decadron.
Impression
Impression
ITP
Plan
Plan
pulse dexamethasone 40mg daily x 4 started 04/24. Continue
Received 1 unit plts 04/24 with no response. plts remain 2K
ordered IVIG 1 mg/kg x 2 days for suspected ITP.
Subjective/Objective
Chief Complaint
Heme F/U
Subjective
No new complaints. She is asking why her DM meds are not being given.
Vital Signs:
Vital Signs
Temp Pulse Resp BP Pulse Ox
98.1 F 68 17 135/70 98
04/26/24 03:44 04/26/24 03:44 04/26/24 03:44 04/26/24 03:44 04/26/24 03:44
Lab Results:
Laboratory Data
WBC 8.4 10^3/uL (4.8-10.8) 04/25/24 06:01
Hgb 12.3 g/dL (12.0-16.0) 04/25/24 06:01
Plt Count 2 10^3/uL (130-400) L* 04/25/24 06:01
PT 13.2 Sec (11.4-14.6) 04/25/24 06:01
INR 0.96 04/25/24 06:01
eGFR 48.09 04/25/24 06:01
Physical Exam
HEENT: No Jaundice
Cardiology: S1 and S2
Pulmonary: Clear
Extremities: Other (petechiae & medial left thigh bruise)
[2024-04-26 07:51] LABS: % Basophils 0.4 % (0-2); % Eosinophils 0.1 % (0-6); % Immature Granulocytes 0.5 % (0-0.5); % Lymphocytes 15.3 % (20.5-51.1); % Monocytes 10.4 % (1.7-9.3); % Neutrophils 73.3 % (42.2-75.2); Absolute Lymphocytes 1.3 10^3/uL (1.2-3.4); Absolute Monocytes 0.9 10^3/uL (0.1-0.6); Absolute Neutrophils 6.1 10^3/uL (1.4-6.5); Hematocrit 33.1 % (37.0-47.0); Hemoglobin 11.4 g/dL (12.0-16.0); Mean Corp Hgb Conc. 34.4 g/dL (33.0-37.0); Mean Corpuscular Volume 95.9 fL (81.0-99.0); Mean Platelet Volume 13.2 fL (7.4-10.4); Nucleated Red Blood Cells % 0 %; Platelet Count 35 10^3/uL (130-400); Red Blood Cell Count 3.45 10^6/uL (4.20-5.40); White Blood Cell Count 8.3 10^3/uL (4.8-10.8)
[2024-04-26 07:59] LABS: Glucose - Point of Care 83 mg/dl (70-99)
[2024-04-26 08:08] LABS: Blood Urea Nitrogen 42 mg/dl (7-17); Carbon Dioxide 16 mmol/L (22-30); Chloride 110 mmol/L (98-107); Estimated Creatinine Clearance 44 ml/min; Glucose 99 mg/dl (70-99); Potassium 4.7 mmol/L (3.5-5.1); Sodium 138 mmol/L (135-145); eGFR 48.09
[2024-04-26] MEDS: NOVOLOG FLEXPEN-LOW RESISTANCE SC ×3 (08:58→17:15)
[2024-04-26] MEDS: AMARYL 4 MG PO ×2 (09:03→19:26)
[2024-04-26] MEDS: GLUCOPHAGE 1000 MG PO ×2 (09:04→18:18)
[2024-04-26] MEDS: LIPITOR 10 MG PO (09:04)
[2024-04-26] MEDS: COZAAR 100 MG PO (09:04)
[2024-04-26] MEDS: NICODERM TRANSDERMAL 14 MG TRANSDERM (09:04)
[2024-04-26 11:49] LABS: Urine Albumin 1+ (Neg - Trace); Urine Bilirubin Negative (Negative); Urine Character Clear (Clear); Urine Color Yellow; Urine Glucose 4+ (Negative); Urine Ketone Negative (Negative); Urine Leukocyte Negative (Negative); Urine Nitrite Negative (Negative); Urine Occult Blood Negative (Negative); Urine Urobilinogen Negative (Neg - 1+)
[2024-04-26] MEDS: GAMMAGARD 50 IV (11:58)
[2024-04-26 12:00] LABS: Glucose - Point of Care 96 mg/dl (70-99)
--- NOTE | 2024-04-26 12:15 | W.PN.HOSP.TC ---
Today's Communication/Plan
-
cont pulse decadron and IVIG
Assessment / Plan
Assessment / Plan
pt is a 73 year old female
Thrombocytopenia--suspect ITP--from RSV vaccine?, meds, immune mediated?--unclear cause--apprec heme--received 1 pack platelets, hold further transfusion per heme--getting pulse dose steroids and IVIG--Jardiance and tizanidine on hold--platelets 35K
today
Type 2 Eyr-qfntbmg-xeqlqqqpf diabetes mellitus--Holding Jardiance/metformin-- cont glimepiride- SSI. Monitor accuchecks with current high dose steroids
Essential hypertension--Continue losartan
Elevated creatinine--unclear if KEANU vs CKD--creat 1.4 to 1.2--seems to have settled at 1.2
Hyperlipidemia--Continue statin
DVT prophy--SCDs
CODE STATUS-- Full code
Anticipated Discharge: > 48 hours
Subjective/Interval History
-
Date of Service: April 26, 2024
pt without c/o
Objective Data
-
Labs:
Laboratory Results
04/26/24
06:41
WBC 8.3
Hgb 11.4 L
Hct 33.1 L
Plt Count 35 L D
Sodium 138
Potassium 4.7
Chloride 110 H
Carbon Dioxide 16 L
BUN 42 H
Creatinine 1.2 H
Glucose 99
Calcium 9.0
Vital Signs:
max temp for 24 hours
04/25/24
15:00
Temp 98.7 F
Vital Signs
Temp Pulse Resp BP Pulse Ox
97.7 F 68 16 119/64 100
04/26/24 11:16 04/26/24 11:16 04/26/24 11:16 04/26/24 11:16 04/26/24 11:16
I&O
04/25/24 04/26/24 04/27/24
06:59 06:59 06:59
Intake Total 323 / 323 480 / 480
Balance 323 / 323 480 / 480
Review of Systems
-
All other systems: Reviewed and negative
Physical Exam
-
General: Well Developed, Well Nourished and No Apparent Distress
HEENT: Normocephalic and Atraumatic
Cardiac: Regular Rhythm and S1/S2; Negative Murmur
GI: Soft, Nontender, Nondistended and Normal Bowel Sounds
Musculoskeletal: No Clubbing, No Cyanosis and No Edema
Skin: Warm
Neuro: Awake
Psych: Calm
[2024-04-26 12:19] LABS: Urine Squamous Cell >30 /LPF (Few)
[2024-04-26 12:20] LABS: Urine Bacteria Few (Negative)
[2024-04-26] MEDS: GAMMAGARD 200 IV ×3 (13:15→15:45)
[2024-04-26] MEDS: DECADRON 60 MG IV (13:42)
[2024-04-26 17:11] LABS: Glucose - Point of Care 71 mg/dl (70-99)
--- NOTE | 2024-04-26 17:28 | PTCARENOTE ---
Pt received IVIG during shift, vital signs stable throughout transfusion.
[2024-04-26 19:49] LABS: Glucose - Point of Care 280 mg/dl (70-99)
[2024-04-26 21:46] LABS: Glucose - Point of Care 316 mg/dl (70-99)
[2024-04-27 03:00] VITALS: BP 141/68
--- NOTE | 2024-04-27 05:13 | PTCARENOTE ---
Patient's blood sugar at 21:44 was 316. JOESPH Briones notified. [employer] told this RN she does not need insulin coverage. Will continue to monitor.
--- NOTE | 2024-04-27 06:41 | W.PN.ONC2 ---
Today's Communication / Plan
-
Await today's CBC but based on yesterday's platelet count, patient appears to be responding and is stable for discharge to home with close hematologic follow-up and order for weekly CBC standing order. She has completed IVIG and will complete
dexamethasone after today's dose (4 days).
Impression
Impression
ITP
Plan
Plan
pulse dexamethasone 40mg daily x 4 started 04/24. Continue x 4 days so her last dose is actually today
Received 1 unit plts 04/24 with no response.
s/p IVIG 1 mg/kg x 2 days 04/25 and 04/26.
Await today's CBC but based on yesterday's platelet count, patient appears to be responding and is stable for discharge to home with close hematologic follow-up and order for weekly CBC standing order.
Subjective/Objective
Chief Complaint
ACS F/U
Subjective
No complaints. Denies significant bleeding.
Vital Signs:
Vital Signs
Temp Pulse Resp BP Pulse Ox
97.5 F 65 14 141/68 98
04/27/24 03:00 04/27/24 03:00 04/27/24 03:00 04/27/24 03:00 04/27/24 03:00
Lab Results:
Laboratory Data
WBC 8.3 10^3/uL (4.8-10.8) 04/26/24 06:41
Hgb 11.4 g/dL (12.0-16.0) L 04/26/24 06:41
Plt Count 35 10^3/uL (130-400) L D 04/26/24 06:41
PT 13.2 Sec (11.4-14.6) 04/25/24 06:01
INR 0.96 04/25/24 06:01
eGFR 48.09 04/26/24 06:41
Physical Exam
HEENT: No Jaundice
Cardiology: S1 and S2
Pulmonary: Clear
[2024-04-27 07:04] LABS: % Basophils 0.1 % (0-2); % Immature Granulocytes 0.3 % (0-0.5); % Lymphocytes 10.4 % (20.5-51.1); % Monocytes 8.5 % (1.7-9.3); % Neutrophils 80.7 % (42.2-75.2); Absolute Lymphocytes 0.7 10^3/uL (1.2-3.4); Absolute Monocytes 0.6 10^3/uL (0.1-0.6); Absolute Neutrophils 5.5 10^3/uL (1.4-6.5); Hematocrit 33.7 % (37.0-47.0); Hemoglobin 11.4 g/dL (12.0-16.0); Mean Corp Hgb Conc. 33.8 g/dL (33.0-37.0); Mean Corpuscular Hgb 32.9 pg (27.0-31.0); Mean Corpuscular Volume 97.1 fL (81.0-99.0); Mean Platelet Volume 11.3 fL (7.4-10.4); Nucleated Red Blood Cells % 0 %; Platelet Count 90 10^3/uL (130-400); Red Blood Cell Count 3.47 10^6/uL (4.20-5.40); Red Cell Dist. Width 13.1 % (11.5-14.5); White Blood Cell Count 6.8 10^3/uL (4.8-10.8)
[2024-04-27 07:16] VITALS: BP 141/71
[2024-04-27 07:37] LABS: Glucose - Point of Care 149 mg/dl (70-99)
[2024-04-27] MEDS: NOVOLOG FLEXPEN-LOW RESISTANCE SC ×2 (07:47→12:34)
[2024-04-27] MEDS: LIPITOR 10 MG PO (09:36)
[2024-04-27] MEDS: COZAAR 100 MG PO (09:40)
[2024-04-27] MEDS: GLUCOPHAGE 1000 MG PO (09:40)
[2024-04-27] MEDS: AMARYL 4 MG PO (09:40)
[2024-04-27] MEDS: NICODERM TRANSDERMAL 14 MG TRANSDERM (09:40)
[2024-04-27 11:08] VITALS: BP 138/69
[2024-04-27 12:33] LABS: Glucose - Point of Care 123 mg/dl (70-99)
--- NOTE | 2024-04-27 15:04 | W.PN.HOSP.TC ---
Today's Communication/Plan
-
d/c
Assessment / Plan
Assessment / Plan
Gen: NAD, AAOx3.
Eyes: EOMI, PERRLA, no scleral icterus.
Neck: supple.
CV: RRR with occasional premature beats, +S1/S2, no m/r/g.
Resp: CTAB, no rales, wheezes, or rhonchi.
Abd: +BS, soft, NT, ND
Skin: No rashes.
Neuro: CN 2-12 intact, non-focal.
Psych: Normal mood and affect.
Thrombocytopenia:
-likely ITP possibly from RSV vaccine, medication AEs, immune mediated
-Heme following, discussed with Dr. Guevara
-s/p 1U platelets, pulse Decadron (4 days), IVIG (2 days)
-plts now 90
-Jardiance and tizanidine were held
Other problems:
DM2: SSI/accuchecks. Jardiance/metformin were held during hospitalization.
Essential hypertension: Continue losartan
CKD3a (doubt KEANU)
Hyperlipidemia: cont statin
FULL/SCDs
Total time spent on d/c = 34 min. This included today's physical exam, progress note, review of laboratory and diagnostic data, preparation of discharge documents and prescriptions, and discussions about the pt's hospital course and discharge plan
with the patient and other medical record consultant involved in the patient's care.
Anticipated Discharge: Today
Subjective/Interval History
-
Date of Service: April 27, 2024
No new complaints.
Objective Data
-
Labs:
Laboratory Results
04/27/24
05:42
WBC 6.8
Hgb 11.4 L
Hct 33.7 L
Plt Count 90 L D
Vital Signs:
Vital Signs
Temp Pulse Resp BP Pulse Ox
97.9 F 70 17 138/69 97
04/27/24 11:08 04/27/24 11:08 04/27/24 11:08 04/27/24 11:08 04/27/24 11:08
I&O
04/26/24 04/27/24 04/28/24
06:59 06:59 06:59
Intake Total 480 / 480 1959 / 1959
Output Total
Balance 480 / 480 1929
[2024-04-27 15:21] VITALS: BP 110/51
[2024-04-27] MEDS: DECADRON 60 MG IV (15:42)
--- NOTE | 2024-04-27 16:04 | CM ---
MD entered order for discharge.
Spoke with pt she said she agrees with dc. Explained IMM.
She said she will notify brother of dc.
Her friend will drive her home.
Offered VN she declined need.
PLAN Home no needs
--- NOTE | 2024-04-28 18:26 | W.DCSUMMARY ---
Discharge Summary
Discharge Data
Date of Admission: 04/24/24
Date of Discharge: 04/27/24
-
Pending Results: No
Hospital Course
Discharging Physician : Manjinder Becerril MD.
Disposition : Home
Primary care physician : Marlys Patel PA.
Principal Discharge diagnosis : Idiopathic thrombocytopenic purpura
Chronic Discharge diagnosis : Hypertension, non insulin dependent diabetes mellitus, hypercholesterolemia
Hospital Course :
73 yo woman with outpatient work up for blood blisters in mouth with outpatient labs showing PLT count of 2 sent to the ER. Recent RSV vaccine. Upon arrival, vitals were stable. Chemistries were unremarkable, CBC was significant for platelets of 2
(thousand). She was noted to have scattered ecchymosis with lower extremity petechial rash. Hematology was consulted.
Pt received 1 unit of platelets with no measurable response as platelets stayed at the same level. PT and INR were normal. She was started on pulse dose dexamethasone for 4 days and IVIG for 2 days. Pt platelets responded promptly to this
treatment, with platelets rising to 90 by discharge.
Jardiance and Tizanidine were held/avoided during stay due to potential for thrombocytopenia side effect. Glycemic control was achieved by ISS while admitted. Aspirin was held throughout stay. Other chronic home medications were continued as
appropriate. She is to continue most home meds upon discharge with the exception of Aspirin, which is only to be continued after clearance to do so by hematology. She was deemed stable for discharge to home with close hematologic follow-up and
script for weekly CBC standing order.
Discharge Plan
-
Patient Disposition: Home (Routine Discharge)
Discharge Diagnosis/Procedures: idiopathic thrombocytopenic purpura
Condition: Good
Diet: Diabetic, Carb Controlled
Activity: No restrictions
Driving Restrictions: As prior to admission
Referrals:
Marlys Patel PA [Family Provider] - in less than 1 week
Prescriptions:
Continued
lovastatin 40 MG tablet
40 mg PO DAILY
glimepiride 4 MG tablet
4 mg PO BID
losartan 100 MG tablet
100 mg PO DAILY
multivitamin 1 EACH tablet
1 ea PO DAILY
ascorbic acid (vitamin C) [Vitamin C] 1,000 mg Tablet
1,000 mg PO DAILY Qty: 0
cholecalciferol (vitamin D3) [Vitamin D3] 50 mcg (2,000 unit) Tablet
50 mcg PO DAILY
metformin 1,000 MG tablet
1,000 mg PO BID
Jardiance 25 mg Tablet
25 mg PO DAILY
levothyroxine [Synthroid] 175 mcg Tablet
175 mcg PO MOTUWETHFRSA@0600
Discontinued
aspirin 81 MG tablet,chewable
1 tab PO DAILY
Patient Comments:
hold for surgery on 04/25/24
Discharge Orders:
Discharge Patient (As Directed); Ordered 04/27/24
Ordered By: Manjinder Becerril
Discharge Date and Time
Discharge Date/Time: 04/27/24 16:58
Print Language: SAMI
== END 2024-04-27 16:58 | disposition home or self-care (01) | DRG 813 ==
LOC: 3 WEST ACU 14:06
PROVIDERS: Nurse Practitioner; Nurse Practitioner Acute Care; Student in an Organized Health Care Education/Training Program; ADMITTING PHYSICIAN Student in an Organized Health Care Education/Training Program; ATTENDING PHYSICIAN Internal Medicine; CONSULT PHYSICIAN Internal Medicine Hematology & Oncology; EMERGENCY PHYSICIAN Emergency Medicine; FAMILY PHYSICIAN Physician Assistant Medical
PROC: 30233R1 Transfusion of Nonautologous Platelets into Peripheral Vein, Percutaneous Approach (ICD-10-PCS; 2024-04-24)
DX: D69.3 Immune thrombocytopenic purpura (principal); E03.9 Hypothyroidism, unspecified; E11.22 Type 2 diabetes mellitus with diabetic chronic kidney disease; I12.9 Hypertensive chronic kidney disease with stage 1 through stage 4 chronic kidney disease, or unspecified chronic kidney disease; N18.31 Chronic kidney disease, stage 3a; F17.210 Nicotine dependence, cigarettes, uncomplicated; Z79.82 Long term (current) use of aspirin; Z79.84 Long term (current) use of oral hypoglycemic drugs; Z79.890 Hormone replacement therapy; Z88.2 Allergy status to sulfonamides; Z88.8 Allergy status to other drugs, medicaments and biological substances; S00.522A Blister (nonthermal) of oral cavity, initial encounter; E78.5 Hyperlipidemia, unspecified
CPT/HCPCS: 80048; 80053; 81003; 81015; 82962; 83036; 83735; 85025; 85610; 86803; 86850; 86900; 86901; 87040; 93005; 99285; 99406; J1569; P9073

== ENCOUNTER → 2024-05-16 09:14 | Outpatient (REF) | payer MEDICARE, OTHER, SELFPAY ==
[2024-05-16 09:17] LABS: % Basophils 0.5 % (0-2); % Immature Granulocytes 0.2 % (0-0.5); % Lymphocytes 17.7 % (20.5-51.1); % Monocytes 9.3 % (1.7-9.3); % Neutrophils 71.3 % (42.2-75.2); Absolute Eosinophils 0.1 10^3/uL (0-0.7); Absolute Monocytes 0.5 10^3/uL (0.1-0.6); Absolute Neutrophils 4.2 10^3/uL (1.4-6.5); Hematocrit 33.3 % (37.0-47.0); Hemoglobin 11.6 g/dL (12.0-16.0); Mean Corp Hgb Conc. 34.8 g/dL (33.0-37.0); Mean Corpuscular Hgb 33.5 pg (27.0-31.0); Mean Corpuscular Volume 96.2 fL (81.0-99.0); Mean Platelet Volume 10.3 fL (7.4-10.4); Platelet Count 100 10^3/uL (130-400); Red Blood Cell Count 3.46 10^6/uL (4.20-5.40); Red Cell Dist. Width 13.6 % (11.5-14.5); White Blood Cell Count 5.8 10^3/uL (4.8-10.8)
== END ==
LOC: OIDL 09:14
PROVIDERS: ATTENDING PHYSICIAN Internal Medicine Hematology & Oncology
DX: D69.3 Immune thrombocytopenic purpura (principal)
CPT/HCPCS: 85025

== ENCOUNTER → 2024-05-19 11:50 | Outpatient (REF) | payer MEDICARE, OTHER, SELFPAY ==
[2024-05-19 09:20] LABS: % Basophils 0.6 % (0-2); % Eosinophils 1.5 % (0-6); % Immature Granulocytes 0.2 % (0-0.5); % Lymphocytes 16.5 % (20.5-51.1); % Monocytes 10.2 % (1.7-9.3); Absolute Eosinophils 0.1 10^3/uL (0-0.7); Absolute Lymphocytes 0.9 10^3/uL (1.2-3.4); Absolute Monocytes 0.6 10^3/uL (0.1-0.6); Absolute Neutrophils 3.8 10^3/uL (1.4-6.5); Hematocrit 35.7 % (37.0-47.0); Hemoglobin 12.3 g/dL (12.0-16.0); Mean Corp Hgb Conc. 34.5 g/dL (33.0-37.0); Mean Corpuscular Volume 95.7 fL (81.0-99.0); Platelet Count 104 10^3/uL (130-400); Red Blood Cell Count 3.73 10^6/uL (4.20-5.40); Red Cell Dist. Width 13.3 % (11.5-14.5); White Blood Cell Count 5.4 10^3/uL (4.8-10.8)
== END ==
LOC: OIDL 11:50
PROVIDERS: ATTENDING PHYSICIAN Internal Medicine Hematology & Oncology
DX: D69.3 Immune thrombocytopenic purpura (principal)
CPT/HCPCS: 85025

== ENCOUNTER → 2024-05-23 08:35 | Outpatient (REF) | payer MEDICARE, OTHER, SELFPAY ==
[2024-05-23 08:43] LABS: % Basophils 0.8 % (0-2); % Eosinophils 1.2 % (0-6); % Immature Granulocytes 0.2 % (0-0.5); % Lymphocytes 23.4 % (20.5-51.1); % Monocytes 11.1 % (1.7-9.3); % Neutrophils 63.3 % (42.2-75.2); Absolute Eosinophils 0.1 10^3/uL (0-0.7); Absolute Lymphocytes 1.2 10^3/uL (1.2-3.4); Absolute Monocytes 0.6 10^3/uL (0.1-0.6); Absolute Neutrophils 3.2 10^3/uL (1.4-6.5); Hematocrit 33.8 % (37.0-47.0); Hemoglobin 11.8 g/dL (12.0-16.0); Mean Corp Hgb Conc. 34.9 g/dL (33.0-37.0); Mean Corpuscular Hgb 33.3 pg (27.0-31.0); Mean Corpuscular Volume 95.5 fL (81.0-99.0); Mean Platelet Volume 9.2 fL (7.4-10.4); Platelet Count 240 10^3/uL (130-400); Red Blood Cell Count 3.54 10^6/uL (4.20-5.40); Red Cell Dist. Width 13.7 % (11.5-14.5)
== END ==
LOC: OIDL 08:35
PROVIDERS: ATTENDING PHYSICIAN Internal Medicine Hematology & Oncology
DX: D69.3 Immune thrombocytopenic purpura (principal)
CPT/HCPCS: 85025

== ENCOUNTER → 2024-05-30 08:29 | Outpatient (REF) | payer MEDICARE, OTHER, SELFPAY ==
[2024-05-30 08:31] LABS: % Basophils 1.2 % (0-2); % Eosinophils 1.4 % (0-6); % Lymphocytes 20.8 % (20.5-51.1); % Monocytes 11.4 % (1.7-9.3); % Neutrophils 65.2 % (42.2-75.2); Absolute Basophils 0.1 10^3/uL (0-0.2); Absolute Eosinophils 0.1 10^3/uL (0-0.7); Absolute Monocytes 0.6 10^3/uL (0.1-0.6); Absolute Neutrophils 3.3 10^3/uL (1.4-6.5); Hematocrit 34.4 % (37.0-47.0); Hemoglobin 11.9 g/dL (12.0-16.0); Mean Corp Hgb Conc. 34.6 g/dL (33.0-37.0); Mean Corpuscular Hgb 33.3 pg (27.0-31.0); Mean Corpuscular Volume 96.4 fL (81.0-99.0); Mean Platelet Volume 9.7 fL (7.4-10.4); Platelet Count 107 10^3/uL (130-400); Red Blood Cell Count 3.57 10^6/uL (4.20-5.40); Red Cell Dist. Width 13.4 % (11.5-14.5)
== END ==
LOC: OIDL 08:29
PROVIDERS: ATTENDING PHYSICIAN Registered Nurse
DX: D69.3 Immune thrombocytopenic purpura (principal)
CPT/HCPCS: 85025

== ENCOUNTER → 2024-06-06 08:36 | Outpatient (REF) | payer MEDICARE, OTHER, SELFPAY ==
[2024-06-06 08:58] LABS: % Eosinophils 1.2 % (0-6); % Immature Granulocytes 0.2 % (0-0.5); % Lymphocytes 14.4 % (20.5-51.1); % Monocytes 7.8 % (1.7-9.3); % Neutrophils 75.4 % (42.2-75.2); Absolute Basophils 0.1 10^3/uL (0-0.2); Absolute Eosinophils 0.1 10^3/uL (0-0.7); Absolute Lymphocytes 0.9 10^3/uL (1.2-3.4); Absolute Monocytes 0.5 10^3/uL (0.1-0.6); Absolute Neutrophils 4.4 10^3/uL (1.4-6.5); Hematocrit 37.1 % (37.0-47.0); Hemoglobin 12.7 g/dL (12.0-16.0); Mean Corp Hgb Conc. 34.2 g/dL (33.0-37.0); Mean Corpuscular Hgb 33.2 pg (27.0-31.0); Mean Corpuscular Volume 97.1 fL (81.0-99.0); Platelet Count 84 10^3/uL (130-400); Red Blood Cell Count 3.82 10^6/uL (4.20-5.40); Red Cell Dist. Width 13.5 % (11.5-14.5); White Blood Cell Count 5.9 10^3/uL (4.8-10.8)
[2024-06-06 09:33] LABS: ALT (SGPT) 23 U/L (0-35); AST (SGOT) 27 U/L (14-36); Albumin 3.9 g/dl (3.5-5.0); Alkaline Phosphatase 62 U/L (38-126); Blood Urea Nitrogen 28 mg/dl (7-17); Calcium 9.5 mg/dl (8.4-10.2); Carbon Dioxide 25 mmol/L (22-30); Chloride 112 mmol/L (98-107); Glucose 122 mg/dl (70-99); Potassium 4.8 mmol/L (3.5-5.1); Sodium 146 mmol/L (135-145); Total Bilirubin 0.3 mg/dl (0.2-1.3); Total Protein 7.9 g/dl (6.3-8.2)
[2024-06-06 10:07] LABS: Hepatitis B Surface Antigen Negative (Negative)
[2024-06-06 10:25] LABS: Hepatitis B Surface Antibody Positive
== END ==
LOC: OIDL 08:36
PROVIDERS: ATTENDING PHYSICIAN Nurse Practitioner Primary Care
DX: D69.3 Immune thrombocytopenic purpura (principal)
CPT/HCPCS: 80053; 85025; 86704; 86706; 87340

== ENCOUNTER → 2024-07-21 09:55 | Outpatient (REF) | payer MEDICARE, OTHER, SELFPAY ==
[2024-07-21 10:55] LABS: % Basophils 0.6 % (0-2); % Eosinophils 1.7 % (0-6); % Immature Granulocytes 0.2 % (0-0.5); % Lymphocytes 22.5 % (20.5-51.1); % Monocytes 12.6 % (1.7-9.3); % Neutrophils 62.4 % (42.2-75.2); Absolute Eosinophils 0.1 10^3/uL (0-0.7); Absolute Lymphocytes 1.1 10^3/uL (1.2-3.4); Absolute Monocytes 0.6 10^3/uL (0.1-0.6); Hematocrit 40.4 % (37.0-47.0); Hemoglobin 13.7 g/dL (12.0-16.0); Mean Corp Hgb Conc. 33.9 g/dL (33.0-37.0); Mean Corpuscular Hgb 32.2 pg (27.0-31.0); Mean Corpuscular Volume 94.8 fL (81.0-99.0); Mean Platelet Volume 9.9 fL (7.4-10.4); Platelet Count 96 10^3/uL (130-400); Red Blood Cell Count 4.26 10^6/uL (4.20-5.40); Red Cell Dist. Width 12.4 % (11.5-14.5); White Blood Cell Count 4.8 10^3/uL (4.8-10.8)
== END ==
LOC: OIDL 09:55
PROVIDERS: ATTENDING PHYSICIAN Internal Medicine Hematology & Oncology
DX: D69.3 Immune thrombocytopenic purpura (principal)
CPT/HCPCS: 85025

== ENCOUNTER → 2024-09-29 11:04 | Outpatient (REF) | payer MEDICARE, OTHER, SELFPAY ==
[2024-09-29 11:45] LABS: Hematocrit 40.2 % (37.0-47.0); Hemoglobin 13.4 g/dL (12.0-16.0); Mean Corp Hgb Conc. 33.3 g/dL (33.0-37.0); Mean Corpuscular Volume 95.5 fL (81.0-99.0); Nucleated Red Blood Cells % 0 %; Platelet Count 37 10^3/uL (130-400); Red Cell Dist. Width 13.0 % (11.5-14.5)
== END ==
LOC: REG 11:04
PROVIDERS: ATTENDING PHYSICIAN Internal Medicine Hematology & Oncology
DX: D69.3 Immune thrombocytopenic purpura (principal)
CPT/HCPCS: 36415; 85025

== ENCOUNTER → 2024-10-16 07:24 | Outpatient (REF) | payer MEDICARE, OTHER, SELFPAY | LOC: WDC 07:24 | PROVIDERS: ATTENDING PHYSICIAN Obstetrics & Gynecology Gynecology; FAMILY PHYSICIAN Physician Assistant Medical | DX: Z12.31 Encounter for screening mammogram for malignant neoplasm of breast (principal) | CPT/HCPCS: 77063; 77067 ==

== ENCOUNTER → 2025-01-06 08:51 | Outpatient (REF) | payer MEDICARE, OTHER, SELFPAY | LOC: RAD 08:51 | PROVIDERS: ATTENDING PHYSICIAN Surgery Vascular Surgery; FAMILY PHYSICIAN Physician Assistant Medical | DX: I73.9 Peripheral vascular disease, unspecified (principal) | CPT/HCPCS: 93922; 93925 ==

== ENCOUNTER → 2025-01-09 12:36 | Outpatient (REF) | payer MEDICARE, OTHER, SELFPAY ==
[2025-01-09 13:08] LABS: Blood Urea Nitrogen 41 mg/dl (7-17); Calcium 9.6 mg/dl (8.4-10.2); Carbon Dioxide 19 mmol/L (22-30); Chloride 107 mmol/L (98-107); Glucose 314 mg/dl (70-99); Potassium 5.5 mmol/L (3.5-5.1); Sodium 138 mmol/L (135-145); eGFR 43.42
== END ==
LOC: REG 12:36
PROVIDERS: ATTENDING PHYSICIAN Internal Medicine Hematology & Oncology; FAMILY PHYSICIAN Physician Assistant Medical
DX: D69.3 Immune thrombocytopenic purpura (principal)
CPT/HCPCS: 36415; 80048

== ENCOUNTER → 2025-01-30 12:11 | Outpatient (REF) | payer MEDICARE, OTHER, SELFPAY | LOC: HWRAD 12:11 | PROVIDERS: ATTENDING PHYSICIAN Physician Assistant Medical | DX: M25.552 Pain in left hip (principal) | CPT/HCPCS: 73502 ==